=== PATIENT | male | born 1985 | race Two or more races ===

== ENCOUNTER 2025-01-26 15:43 | Emergency (ER) | payer MEDICAID, SELFPAY ==
[2025-01-26 16:17] VITALS: BP 131/82; PULSE 73; RESP 18; TEMP 37.1; O2SAT 97; BMI 29.0
--- NOTE | 2025-01-26 16:20 | XR_ITS ---
Examination: CT brain head without contrast. 2-D sagittal coronal reconstructions Date and time of exam: January 26, 2025, 1644 hours INDICATIONS: Severe head pain beginning 1 week ago CTDI: vol (mGy): 49.8 DLP: (mGycm): 1011 Technique: Multiple CT axial sections of the brain have been obtained, 5 mm slice thickness. Contrast has not been administered. 2-D sagittal, coronal reconstructions have been obtained Low dose protocols were performed. One or more of the following dose reduction techniques were used; automated exposure control, adjustment of the mA and/or KV according to patient size, use of iterative reconstruction technique. Findings: No significant ventricular enlargement. Intra-axial or extra-axial hemorrhage density is not seen. No mass effect or midline shift Basal cisterns are not remarkable. Fourth ventricle is midline. Cranial vault intact. Impression: Negative for acute hemorrhage, mass effect or midline shift If new onset headaches persist, consider brain MRI follow-up
--- NOTE | 2025-01-26 16:21 | PD.EDRME ---
Rapid Medical Screening Exam RME Arrival date/time: 01/26/25 15:43 39-year-old male presents to the emergency department of complaint of headache and generalized bodyaches Chief Complaint: General Adult/Misc Complain Time Seen by Provider: 01/26/25 15:56 Vital signs: Vital Signs Temperature 98.8 F 01/26/25 16:17 Pulse Rate 73 01/26/25 16:17 Respiratory Rate 18 01/26/25 16:17 Blood Pressure 131/82 H 01/26/25 16:17 Pulse Oximetry (%) 97 01/26/25 16:17 Oxygen Delivery Method Room Air 01/26/25 16:17 Vital signs reviewed by provider: Yes Exam: On exam patient well-appearing does not appear ill or toxic no acute distress Clinical Impression: Lab work and imaging obtained
[2025-01-26 16:52] LABS: Basophils # (Auto) 0.0 Thou/mm3 (0.0-0.2); Basophils % (Auto) 1 % (0-2.5); Eosinophils # (Auto) 0.2 Thou/mm3 (0.0-0.5); Eosinophils % (Auto) 4 % (0-10); Hematocrit 38.4 % (41.0-53.0); Hemoglobin 13.2 g/dL (13.5-16.0); Immature Granulocytes Auto 0.01 Thou/mm3 (0.00-0.00); Lymphocytes # (Auto) 2.7 Thou/mm3 (1.0-4.8); Lymphocytes % (Auto) 44 % (10-50); Mean Corpuscular HGB Conc 34.4 g/dl (31.0-37.0); Mean Corpuscular Hemoglobin 31.0 pg (25.0-35.0); Mean Corpuscular Volume 90 fL (80-100); Monocytes # (Auto) 0.5 Thou/mm3 (0.0-0.8); Monocytes % (Auto) 9 % (0-12); Neutrophils # (Auto) 2.6 Thou/mm3 (1.8-7.7); Neutrophils % (Auto) 43 % (37-80); Nucleated Red Blood Cell # 0.00 Thou/mm3 (0.00-0.00); Nucleated Red Blood Cell % 0 /100 WBC (0); Platelet Count 348 Thou/mm3 (140-440); RDW Standard Deviation 42.3 fL (35.1-43.9); Red Blood Count 4.26 Miln/mm3 (4.50-5.90); White Blood Count 6.1 Thou/mm3 (3.8-10.6)
[2025-01-26 17:08] LABS: Alanine Aminotransferase 39 U/L (10-49); Albumin, Serum 4.2 gm/dL (3.5-5.0); Albumin/Globulin Ratio 1.7 (1.2-2.2); Alkaline Phosphatase 107 U/L (46-116); Anion Gap 11 (7-16); Aspartate Amino Transferase 32 U/L (0-34); BUN/Creatinine Ratio 15 Ratio (12-20); Bilirubin,Total 0.3 mg/dL (0.3-1.2); Blood Urea Nitrogen 15 mg/dL (9-23); Calcium 8.8 mg/dL (8.3-10.6); Calcium (Corrected) 8.8 mg/dL (8.5-10.1); Carbon Dioxide 26.0 mMol/L (20.0-31.0); Chloride 106 mMol/L (98-107); Creatinine (Component) 1.0 mg/dL (0.6-1.3); Estimated Creatinine Clearance 90.5 mL/min (>60); Globulin 2.5 gm/dL (2.3-3.5); Glucose 136 mg/dL (74-106); Lipase 52 U/L (12-53); Osmolality,Calculated 287 (275-295); Potassium 3.8 mMol/L (3.4-5.1); Sodium 143 mMol/L (136-145); Total Protein 6.7 gm/dL (5.7-8.2); eGFR > 60 See Note
[2025-01-26 17:19] LABS: Collection Type, Urine Clean Catch; Squamous Epithelial Cell,Urine 0 /hpf (0-5)
[2025-01-26 17:34] LABS: Bilirubin,Urine Negative (Negative); Blood,Urine 1+ (Negative); Clarity,Urine Clear (Clear/Hazy); Color,Urine Lt-Yellow (Lt Yel-Yel); Culture Indicated,Urine Not Indicated; Glucose, Urine Negative (Negative); Ketones,Urine Negative (Negative); Leukocyte Esterase,Urine Negative (Negative); Nitrite,Urine Negative (Negative); PH,Urine 6.0 (5.0-7.0); Protein,Urine Trace (Neg - Trace); RBC,Urine 8 /hpf (0-3); Specific Gravity,Urine 1.031 (1.001-1.035); Urobilinogen,Urine Negative mg/dL (0.0-1.0); WBC,Urine < 1 /hpf (0-5)
[2025-01-26 17:37] LABS: Amphetamine/Methamp Scrn,U Negative (Negative); Barbiturate Screen,Urine Negative (Negative); Benzodiazepines Screen,Urine Negative (Negative); Benzoylecgonine Screen, Ur Negative (Negative); Fentanyl Screen,Urine Negative (Negative); Opiate Screen,Urine Negative (Negative); THC Screen,Urine Negative (Negative)
--- NOTE | 2025-01-26 20:21 | EDNOTE_ITS ---
ED General RME/HPI General Chief complaint: General Adult/Misc Complain Stated complaint: 1 WEEK WITH HEADACHE, BILATERAL HAND NUMBNESS Time Seen by Provider: 01/26/25 15:56 Arrival date/time: 01/26/25 15:43 33-year-old male patient with no past medical history, came in for evaluation regarding frontal headache. Has been having frontal headache, for 1 week, it comes and goes, described as pulsating, severity moderate. Also complained of on and off bilateral hand tingling sensation. Comes and goes also, severity mild. Patient denies any upper or lower extremity weakness denies any slurring of speech denies any dizziness denies any other complaints. Patient denies any trauma to the head no fever no neck pain no other complaints noted no medication was taken prior to ER visit. RME / HPI RME / HPI narrative: 01/26/25 15:43 39-year-old male presents to the emergency department of complaint of headache and generalized bodyaches Exam: On exam patient well-appearing does not appear ill or toxic no acute distress Impression: Lab work and imaging obtained Related Data Previous Rx's ?Medication ?Instructions ?Recorded rizatriptan 10 mg tablet (Maxalt) 10 mg PO Q2H PRN [place] headache 01/26/25 #30 tabs Allergies Allergy/AdvReac Type Severity Reaction Status Date / Time No Known Allergies Allergy Verified 01/26/25 15:46 Review of Systems Review of Systems Narrative Review of Systems: Review of system reviewed and within normal limits except mentioned in HPI ED Exam Narrative Physical exam: VITAL SIGNS: Reviewed. GENERAL APPEARANCE: Alert and interactive, follows commands, no acute distress, HEAD AND FACE: Non-traumatic. ENT: PERRL, pink conjunctivitis, eyelid no trauma, Mucous membrane moist. NECK: Supple, nontender, no nuchal rigidity. CHEST: No tenderness, no crepitus, no paradoxical movement, no retractions. LUNGS: Clear, well ventilated, symmetric, no rales, no wheezing, no ronchi, no stridor, good breath sounds bilaterally. HEART: Regular rate, regular rhythm, no murmur, no gallops. ABDOMEN: Soft, positive bowel sounds, nondistended, no guarding, nontender, no rebound, no masses, RECTAL: Deferred. GENITAL: Deferred. NEUROLOGICAL: Gross motor function intact sensory function intact, Appropriate for age. MUSCULOSKELETAL: low back nontender, full range of motion. EXTREMITIES: Nontender, full range of motion. SKIN: Color pink, dry, no rash, no lacerations, no abrasions, no contusions. LYMPHATICS: Deferred. Course Quality Measures none Orders Category Date Time Status CT head/brain wo con Stat Exams 01/26/25 16:20 Completed CBC Stat Lab 01/26/25 16:33 Completed Comprehensive Metabolic Panel Stat Lab 01/26/25 16:33 Completed Drug Screen,Urine Stat Lab 01/26/25 16:40 Completed Lipase Stat Lab 01/26/25 16:33 Completed UA, C/S IF [Urinalysis, C/S if Indicated] Stat Lab 01/26/25 16:40 Completed DiphenhydrAMINE [Benadryl] Med 01/26/25 20:20 Once 25 mg PO X1 ONE Ketorolac Inj [Toradol Inj] Med 01/26/25 20:20 Once 30 mg IM X1 ONE Metoclopramide [Reglan] Med 01/26/25 20:20 Once 10 mg PO X1 ONE Vital Signs Vital signs: Vital Signs Temperature 98.8 F 01/26/25 16:17 Pulse Rate 73 01/26/25 16:17 Respiratory Rate 18 01/26/25 16:17 Blood Pressure 131/82 H 01/26/25 16:17 Pulse Oximetry (%) 97 01/26/25 16:17 Oxygen Delivery Method Room Air 01/26/25 16:17 Discharge Plan Plan Patient Disposition: HOME (Self Care) Discharge Disposition comment: Stable Prescriptions/Referrals Prescriptions/Med Rec: New rizatriptan [Maxalt] 10 mg tablet 10 mg PO Q2H PRN (Reason: migraine headache) Qty: 30 0RF Rx Instructions: do not exceed 3 doses per 24 hrs Referrals: No Primary/Family,Physician [Primary Care Provider] - In 1 week Problem List Clinical Impression: Headache, Hand paresthesia Patient/Caregiver Discharge Instructions Discharge Activity: activity as tolerated Education Materials: ED Paraesthesias Additional Instructions: Thank you for the opportunity for serving you today. You are stable for discharged . You are advised to: Follow-up with your PCP in 1 to 2 days Return to ED for worsening of symptoms Increase oral fluids Take medication as prescribed Print Language: Syriac Stand Alone Forms: Danyelle Award Info., Patient Portal Info Letter PA/XM1 TANK DRIVER Supervising Physician PA/XM1 TANK DRIVER Supervising Physician: MD Sampson MDM Narrative MDM hospital course (for use when minimal MDM required): 33-year-old male patient with no past medical history, came in for evaluation regarding frontal headache. Has been having frontal headache, for 1 week, it comes and goes, described as pulsating, severity moderate. Also complained of on and off bilateral hand tingling sensation. Comes and goes also, severity mild. Patient denies any upper or lower extremity weakness denies any slurring of speech denies any dizziness denies any other complaints. Patient denies any trauma to the head no fever no neck pain no other complaints noted no medication was taken prior to ER visit. Patient's laboratory workup all came back normal CT scan of the head and also came back unremarkable results discussed with the patient. Patient was given Toradol, with and Reglan with complete resolution of headache patient is ambulatory and needed. he is stable for discharge home Diagnosis Differential Diagnosis ED Complaint MDM: Headache, migraine headache stress headache intracranial bleed Diagnoses ruled out and/or further discussions: Headache, paresthesia
[2025-01-26 20:23] VITALS: BP 132/83; PULSE 75; RESP 18; TEMP 36.7; O2SAT 99
[2025-01-26] MEDS: METOCLOPRAMIDE 5 MG TABLET 10 MG PO (20:35)
[2025-01-26] MEDS: KETOROLAC INJ 30 MG/ML VIAL IM (20:36)
== END 2025-01-26 20:39 | disposition home or self-care (01) ==
PROVIDERS: Nurse Practitioner Primary Care; Emergency Provider Emergency Medicine
DX: R51.9 Headache, unspecified (principal); R20.2 Paresthesia of skin
CPT/HCPCS: 36415; 70450; 80053; 80307; 81001; 83690; 85025; 96372; 99283; J1885; A9270